=== PATIENT | male | born 1960 | race Caucasian/White ===

== ENCOUNTER → 2017-06-27 | Day surgery (SDC) | payer BC ==
[2017-06-11 13:35] VITALS: Ht 180.3 cm; Wt 86.4 kg
[~2017-06-27] VITALS: Ht 180.3 cm; Wt 86.4 kg
[~2017-06-27] MED LIST: AMLO-114 PO; ATROPINE SULFATE 0.1 MG/ML 5ML SYR IV PRN; BUPIVACAINE/EPINEPHRINE 0.25% 1:200,000 30 ML VIAL ONE; CEFAZOLIN 2000MG IV PUSH 10 ML IV SCH; DEXAMETHASONE SOD INJ 4 MG/ML VIAL ONE; EpHEDrine SULFATE INJ 50 MG/ML AMP IV PRN; EpHEDrine SULFATE INJ 50 MG/ML AMP ONE; EpINEphrine INJ 1MG/ML AMP 1 MG/ML AMP ONE; FENTANYL CITRATE INJ 50 MCG/1 ML 2 ML VIAL IV PRN; FENTANYL CITRATE INJ 50 MCG/1 ML 2 ML VIAL ONE; KETO10TA PO; KETOROLAC TROMETHAMINE 30 MG/ML VIAL IV. PRN; LACTATED RINGER'S 1000ML 1,000 ML IV SCH; LIDOCAINE HCL 2% 2 ML VIAL (20MG/ML) ONE; MAGNESIUM PO; MIDAZOLAM HCL 1 MG/ML 2ML VIAL ONE; MULT-506 PO; OMEG10007 PO; ONDANSETRON INJ 2 MG/ML 2 ML VIAL IV PRN; ONDANSETRON INJ 2 MG/ML 2 ML VIAL ONE; OXYC-57 PO; OXYCODONE/ACETAMINOPHEN 5-325 TAB PO PRN; PROPOFOL IV EMULSION 10 MG/ML 20 ML VIAL IV ONE; ROPIVACAINE 0.5% 5 MG/ML 30 ML VIAL ONE; SODIUM CHLORIDE 0.9% 1000ML 1,000 ML IV SCH; ZINC1CAP PO
--- NOTE | 2017-06-27 08:03 | History & Physical Bridge - [place] ---
H&P Re-Evaluation Bridge Note: I have examined the patient, reviewed the History & Physical and in the interval since the performance of the History & Physical I have noted the following changes of clinical significance: No changes noted
--- NOTE | 2017-06-27 11:10 | [facility] Post Operative Brief Note ---
Immediate Operative Summary Operative Date Jun 27, 2017. Pre-Operative Diagnosis Right Shoulder Impingement Syndrome, Chronic Pain Post-Operative Diagnosis Same Procedure(s) Performed Right Shoulder ArthrOscopy, Distal Clavicle Resection, Open Biceps Tenodesis, Debridement, Acromioplasty Surgeon Dr. Prince Planer Chain Offbearer Surgeon(s) Kasey Farfan PA-C Estimated Blood Loss 5 ml Findings Consistent with Post-Op Diagnosis Specimens None Anesthesia Type General Regional Complication(s) none Disposition Disposition: Recovery Room / PACU
--- NOTE | 2017-06-27 11:24 | Discharge Instructions-SurgCtr ---
Discharge Instructions Date of Service Jun 27, 2017. Visit Reason for Visit: Right Shoulder Impingement Syndrome, Chronic Pain Discharge Discharge Diagnosis / Problem: SAME ABOVE Discharge Goals Goal(s): Decrease discomfort, Improve function Medications Stopped Medications Name(s): Fish Oil. Last dose 10 days ago. Restart Stopped Medication(s): SEPTEMBER RESTART 06/27/2017 Activity Recommendations Activity Limitations: as noted below Lifting Limitations: no more than 5 pounds Shower/Bathe: tomorrow Driving or Machine Use: WHEN OUT OF THE SLING AND OFF OF PAIN MEDS Anesthesia . Post Anesthesia Instructions: If you have had General Anesthesia or IV Sedation: * Do not drive today. * Resume driving when surgeon permits. * Do not make important decisions or sign legal documents today. * Call surgeon for: 1. Temperature elevations greater than 101 degrees F. 2. Uncontrollable pain. 3. Excessive bleeding. 4. Persistent nausea and vomiting. 5. Medication intolerance (nausea, vomiting or rash). * For nausea and vomiting use only clear liquids such as: tea, soda, bouillon until nausea subsides, then gradually increase diet as tolerated. * If you have any concerns or questions, call your surgeon's office. If physician is unavailable and it is an emergency, call 911 or go to the nearest emergency room. . Instructions / Follow-Up Instructions / Follow-Up MEDICATIONS: * Resume previous medications unless instructed otherwise by your surgeon. * Always take pain medication on a full stomach or with food to avoid upset stomach. * Do not drink alcohol or drive while taking narcotics. * Ibuprofen or Tylenol may be taken if narcotic not needed. SPECIAL CARE INSTRUCTIONS: __ None _X_ Keep extremity elevated and iced x 48 hours; apply ice 20-30 minutes 8-10 times/day. May remove at night. _X_ Sling (WEAR FOR COMFORT ONLY) __24 hrs/day __ Remove at night __ Shoulder Immobilizer __ 24 hrs/day __ Remove at night X__ Dressing __ Maintain until seen in office, may shower with plastic over site _X_ Remove dressings in 24-48 hours and then may shower _X_ Cover incisions with band-aids after showering _X_ Do not remove steri-strips Call physician if chills or temperature rises above 102 degrees or pain unrelieved by prescribed pain medications at . . Diet Recommendations Home Diet: no limitations Fluid Restriction: None Procedures Procedures Performed: Right Shoulder ArthrOscopy, Distal Clavicle Resection, Open Biceps Tenodesis, Debridement, Acromioplasty Pending Studies Studies pending at discharge: no Work Instructions Return To Work: after follow-up Medical Emergencies . Who to Call and When: Medical Emergencies: If at any time you feel your situation is an emergency, please call 911 immediately. . Non-Emergent Contact Non-Emergency issues call your: Primary Care Provider Call Non-Emergent contact if: you have a fever, temperature is above 101.5 . . "Provider Documentation" section prepared by Kennedy Farfan. .
--- NOTE | 2017-06-27 12:40 | Anesthesia Progress Nt - [facility] ---
Anesthesia Post Op Note Date & Time Jun 27, 2017 at 12:40 Vital Signs Pain Intensity: 0 Vital Signs Past 12 Hours Date Time Temp Pulse Resp B/P (MAP) Pulse Ox O2 Delivery O2 Flow Rate FiO2 06/27/17 12:08 36.4 62 14 136/86 (103) 95 Room Air 06/27/17 11:57 64 17 94 06/27/17 11:57 65 17 06/27/17 11:56 121/86 06/27/17 11:55 36.5 60 15 121/86 94 Room Air 06/27/17 11:52 69 21 96 06/27/17 11:52 72 21 06/27/17 11:51 117/88 06/27/17 11:47 66 18 98 06/27/17 11:47 68 18 06/27/17 11:45 123/80 06/27/17 11:42 68 14 06/27/17 11:42 69 14 98 06/27/17 11:41 127/87 06/27/17 11:37 69 15 06/27/17 11:37 71 15 98 06/27/17 11:36 127/76 06/27/17 11:32 60 12 06/27/17 11:32 59 12 98 06/27/17 11:31 120/80 06/27/17 11:27 73 23 06/27/17 11:27 73 23 97 06/27/17 11:26 132/75 06/27/17 11:24 128/92 06/27/17 11:24 36.3 72 16 128/92 96 Mask 6 06/27/17 10:17 13 06/27/17 10:16 67 22 99 06/27/17 10:16 68 06/27/17 10:15 125/77 06/27/17 10:11 61 06/27/17 10:11 61 22 99 06/27/17 10:10 120/77 06/27/17 10:08 65 25 100 06/27/17 10:08 66 06/27/17 10:05 119/79 06/27/17 10:03 68 06/27/17 10:03 68 21 100 06/27/17 10:02 65 21 100 06/27/17 10:02 69 06/27/17 10:01 124/80 06/27/17 09:57 78 18 99 06/27/17 09:57 74 06/27/17 09:56 123/78 06/27/17 09:52 71 17 100 06/27/17 09:52 69 06/27/17 09:51 135/83 06/27/17 09:49 67 15 99 06/27/17 09:49 67 06/27/17 09:45 143/98 06/27/17 09:44 77 22 99 06/27/17 09:44 74 06/27/17 09:40 143/92 06/27/17 09:39 63 17 100 06/27/17 09:39 64 06/27/17 09:38 62 34 127/84 97 06/27/17 09:38 63 06/27/17 09:33 0 06/27/17 09:28 0 06/27/17 09:23 0 06/27/17 09:18 0 06/27/17 07:59 36.8 68 16 143/84 (103) 97 Room Air Notes Mental Status: alert / awake / arousable, participated in evaluation Pt Amnestic to Procedure: Yes Nausea / Vomiting: adequately controlled Pain: adequately controlled Airway Patency, RR, SpO2: stable & adequate BP & HR: stable & adequate Hydration State: stable & adequate Anesthetic Complications: no major complications apparent
[2017-06-27 12:48] VITALS: BP 119/74; PULSE 65; TEMP 36.6; O2SAT 95
--- NOTE | 2017-06-27 22:14 | OPERATIVE REPORT ---
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 POSTOPERATIVE DIAGNOSIS: Same. PROCEDURE: Right shoulder diagnostic arthroscopy with extensive debridement, acromioplasty, distal clavicle resection and open subpectoral biceps tenodesis. SURGEON: Benito Prince DO. SUPERVISOR NUT PROCESSING: Rivera Farfan PA-C, whose assistance was necessary for positioning the arm and helping with instrumentation. ANESTHESIA: General with a right interscalene nerve block. COMPLICATIONS: None. CONDITION: Stable to PACU. INDICATIONS: Regino is a pleasant 56-year-old male who presented to my office with complaints of chronic right shoulder pain. I did a left shoulder arthroplasty on him about 18 months ago. He did well with that. Unfortunately, he was having similar symptoms on his right side. MRI and clinical examination were diagnostic for severe external impingement, AC joint arthritis. After failing conservative treatment, he elected to undergo arthroscopy. DESCRIPTION OF PROCEDURE: On 06/27/2017, he arrived at [facility] for the above procedure. He was seen in the preoperative holding and the operative extremity was identified and signed. He was given a preoperative antibiotic and a right interscalene nerve block. He was taken back to the operating room, laid on the table in supine position and put under general anesthesia. He was put into the beach chair position. The right shoulder was prepped and draped in sterile fashion. Time-out was done and the patient's operative extremity was properly identified. A scope was introduced in the posterior portal. Diagnostic arthroscopy showed a 1.5 cm area of grade 4 chondral damage on the anterior humeral head. There was a lot of fraying in the anterior labrum. There was no cartilage damage on the glenoid. Biceps tendon was red but not frayed. There was no tearing of the supraspinatus, infraspinatus, teres minor or subscapularis. An anterior portal was made. A shaver was used to do a limited debridement of the intraarticular structures. The biceps tendon was arthroscopically tenotomized for later tenodesis. The scope was then put into the subacromial space. A lateral portal was made. A shaver was used to do a complete subacromial and subdeltoid bursectomy. There was a lot of very red and inflamed bursa. An ablator was used to do a revision acromioplasty. The bursal side of the rotator cuff was examined extensively without evidence of tear. Attention was turned to the distal clavicle. Through an anterior portal, a shaver and ablator were used to skeletonize the distal clavicle. A 5-0 nsair was then used to resect the distal 5 mm of the clavicle. Complete resection was checked under direct visualization. A shaver was used to remove any excess debris and final diagnostic arthroscopy showed no additional pathology. Arthroscopic instruments were removed from the shoulder and attention was turned to an open biceps tenodesis. A small incision was made over the inferior border of the pec major. Dissection was taken down to the fascia and the long head of the biceps tendon was delivered out of the wound. The tendon was then whip stitched with an Arthrex fiber loop. A 6 mm hole was then drilled in the bicipital groove. The biceps tendon was then tenodesed with an Arthrex biceps button that was passed through the posterior cortex in a tension slide technique to deliver the tendon into the 6 mm hole. This gave good fixation. The wound was then irrigated and closed with 3-0 Vicryl and running 3-0 Monocryl. Steri-strips were placed. Portal sites were closed with 3-0 nylon. He was then placed in a soft dressing and a regular arm sling. He was then extubated, transferred to a litter and taken to the postanesthesia care unit in stable condition. He tolerated the procedure well. I attest to the content of the Intraoperative Record and any orders documented therein. Any exception s are noted below.
== END | disposition home or self-care (01) ==
LOC: X.SURG 07:45
PROVIDERS: ATTEND Orthopaedic Surgery
DX: M25.811 Other specified joint disorders, right shoulder (principal); M19.011 Primary osteoarthritis, right shoulder; I10 Essential (primary) hypertension